=== PATIENT | male | born 1945 | race Two or more races ===

== ENCOUNTER → 2018-10-16 | Outpatient (CLI) | payer OTHER, MEDICAID | LOC: BHFA 10:00 | PROVIDERS: ATTEND Internal Medicine Cardiovascular Disease | DX: R06.02 Shortness of breath (principal); R01.1 Cardiac murmur, unspecified; I10 Essential (primary) hypertension ==

== ENCOUNTER → 2018-10-21 | Outpatient (CLI) | payer OTHER, MEDICAID ==
[~2018-10-21] MED LIST: IOPAMIDOL (ISOVUE 370) 100 ML BTL IV ONE
== END ==
LOC: FIMAGING 10:29
PROVIDERS: ATTEND Internal Medicine Cardiovascular Disease
DX: I71.2 Thoracic aortic aneurysm, without rupture (principal)
CPT/HCPCS: 71275; Q9967

== ENCOUNTER 2018-10-29 11:32 | Inpatient (IN) | payer OTHER, MEDICAID | END 2018-11-08 13:52 | disposition home or self-care (01) | LOC: F2N 11-03 11:10 → FCATH 11:32 → F2N 14:41 → F2W 10-30 20:00 → F2N 11-03 19:03 → F2W 11-04 17:40 ==

== ENCOUNTER 2018-11-12 17:49 | Inpatient (IN) | payer OTHER, MEDICAID | END 2018-11-14 18:23 | disposition home or self-care (01) | LOC: F2W 21:35 ==